=== PATIENT | male | born 1935 | race Caucasian/White ===

== ENCOUNTER → 2016-06-09 | Outpatient (CLI) | payer MEDICARE, BC ==
--- NOTE | 2016-06-09 16:15 | CT ---
EXAMINATION TYPE: CT abdomen pelvis w con DATE OF EXAM: 06/09/2016 3:07 PM COMPARISON: NONE HISTORY: Pain, distention, fluid retention CT DLP: 1800.2 mGycm Automated exposure control for dose reduction was used. TECHNIQUE: Helical acquisition of images from the lung bases through the pelvis have been completed. CONTRAST: Performed with Oral Contrast and with IV Contrast, patient injected with 100 mL of Omnipaque 300. FINDINGS: LUNG BASES: Bilateral pleural effusions are present, there is some dependent atelectatic change suspe cted. The heart is enlarged. Leads are present within the heart, there are coronary artery calcificat ions. AORTA: Aorta is tortuous and shows atheromatous change. Infrarenal abdominal aorta measures 5.3 cm, there is luminal plaque. 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 On the left the common iliac artery measures approximately 3.2 cm. Poor opacification of the external iliac artery on the right may be due to flow. LIVER/GB: The liver shows low attenuation likely due to fatty infiltration. Dependent hyperdensity wi thin the gallbladder compatible with stones. The liver is enlarged. PANCREAS: No significant abnormality is seen. SPLEEN: No significant abnormality is seen. ADRENALS: No significant abnormality is seen. KIDNEYS: Cortical cyst present at the upper pole measuring approximately 5.3 cm on the right. No hydr onephrosis bilaterally, no evident calculi. REPRODUCTIVE ORGANS: The prostate is markedly enlarged and shows associated calcification, there is m ass effect on the inferior aspect of the urinary bladder. BOWEL: Extensive diverticular changes associated with the sigmoid colon. FREE AIR: No Free Air visible. ASCITES: Ascites is present. There is fluid density present within an umbilical hernia which contain s fat. Subcutaneous tissue show increased attenuation compatible with edema, correlate for cellulitis along the anterior abdominal wall inferiorly PELVIC ADENOPATHY: None visualized. RETROPERITONEAL ADENOPATHY: No Retroperitoneal Adenopathy visible. URINARY BLADDER: No significant abnormality is seen. OSSEOUS STRUCTURES: Degenerative disc changes in the visualized spine. Reflux of contrast noted from the right heart into the hepatic veins. IMPRESSION: INFRARENAL ABDOMINAL AORTIC ANEURYSM, COMMON ILIAC ARTERY ANEURYSMS DESCRIBED. ASCITES, DIVERTICUL OSIS, HEPATOMEGALY AND PROBABLE FATTY INFILTRATION OF THE LIVER. CORRELATE FOR HEART FAILURE, THERE A RE BILATERAL PLEURAL EFFUSIONS, CARDIOMEGALY.
== END | disposition home or self-care (01) ==
LOC: RADCTMAIN 13:19
PROVIDERS: ATTEND Family Medicine
DX: I71.4 Abdominal aortic aneurysm, without rupture (principal); K57.30 Diverticulosis of large intestine without perforation or abscess without bleeding; I72.3 Aneurysm of iliac artery; R18.8 Other ascites; R16.0 Hepatomegaly, not elsewhere classified
CPT/HCPCS: 74177; Q9967